=== PATIENT | male | born 1965 | race Caucasian/White ===

== ENCOUNTER 2024-10-23 17:55 | Emergency (ER) | payer OTHER, SELFPAY ==
[2024-10-23 18:00] VITALS: BP 117/75; PULSE 90; RESP 16; TEMP 36.4; O2SAT 99; BMI 25.7
[2024-10-23] MEDS: LIDOCAINE 1%-EPI 1:100,000 7 ML INFILTRATI (18:59)
--- NOTE | 2024-10-23 19:07 | CRLHL7_ITS ---
For Patients: As a result of the Cures Act, medical imaging exams and procedure reports are released immediately into your electronic medical record. You may view this report before your referring provider. If you have questions, please contact your health care provider. INDICATION: Fingertip caught in snowblower TECHNIQUE: Finger radiograph 3 views right 4th COMPARISON: None FINDINGS: Bone: No acute fractures or aggressive bone lesions are identified. Technologist annotation partially obscures the distal phalanx on the lateral view. Joint: The metacarpophalangeal and interphalangeal joints are normal in appearance. Soft tissue: Partial soft tissue amputation suspected in the distal digit. No radiopaque foreign bodies are seen. IMPRESSION: 1. No acute osseous injuries or abnormalities are noted. Dictated by: Haile Payan MD @ 10/23/2024 19:18:33 (Electronically Signed)
--- NOTE | 2024-10-23 19:43 | ED.WOUNDLAC ---
HPI - Wound/Laceration General Date Seen: 10/23/24 Chief Complaint: Laceration/Wound Stated Complaint: R ring/middle finger in mortgage loan originator Time Seen by Provider: 10/23/24 18:19 Source: patient Mode of arrival: ambulatory Limitations: no limitations History of Present Illness HPI narrative: Patient is a 59-year-old male who presents to emergency department after cutting his right distal 3rd and 4th fingers on a mortgage loan originator thought he was trying to clean. Is happened shortly prior to arrival. States he tried to clean the area extensively before he arrived. Last tetanus was 4 years ago he states. So far she could tell both fingernails were intact. No damage to the palmar aspect. No other concerns noted Related Data Home Medications ?Medication ?Instructions ?Recorded ?Confirmed No Known Home Medications 10/23/24 10/23/24 Allergies Allergy/AdvReac Type Severity Reaction Status Date / Time No Known Drug Allergies Allergy Verified 10/23/24 16:59 Review of Systems Narrative: Pertinent systems reviewed and were negative unless stated in HPI PFSH PFSH Social History Smoking Status: Never smoker Do you use any of these nicotine containing products: None How often do you have a drink containing alcohol: never How often do you have six or more drinks on one occasion: Never AUDIT-C Alcohol total score: 0 Non-prescribed substance use: denies use service: No Exam Narrative: Exam Narrative: Const: Well-nourished, Well-developed, in no distress Eyes: PERRL, no conjunctival injection, and symmetrical lids HENT: Atraumatic external nose and ears. Moist mucous membranes. PERRLA removed MSK:Extremities w/o deformity, Normal Active ROM Skin: Warm, Dry. Avulsed skin and partial nail avulsion noted to the right 4th finger. Avulsed scan is just to the dorsal aspect. Goes about snf down the nail. Nail bed is intact. On the right 3rd finger the nail has been pulled out of the eponychium. Neuro: Normal Muscle tone, No focal neurological deficits. Psych: Awake, Alert, & Oriented x3. Appropriate mood and affect. Const: Vital Signs, click to edit/add: Vital Signs - 24 hr 10/23/24 18:00 Temperature 97.5 F L Pulse Rate [Pulse Oximeter] 90 Respiratory Rate 16 Blood Pressure [Ri ght Upper Arm] 117/75 Pulse Oximetry 99 Oxygen Delivery Me thod Room Air Course Vital Signs Vital signs: Initial Vital Signs Temperature 97.5 F L 10/23/24 18:00 Temperature Source Temporal Artery Scan 10/23/24 18:00 Pulse Rate 90 10/23/24 18:00 Respiratory Rate 16 10/23/24 18:00 Blood Pressure 117/75 10/23/24 18:00 Blood Pressure Mean 89 10/23/24 18:00 Blood Pressure Position Sitting 10/23/24 18:00 Pulse Oximetry 99 10/23/24 18:00 Oxygen Delivery Method Room Air 10/23/24 18:00 Vital Signs Temperature 97.5 F L 10/23/24 18:00 Pulse Rate 90 10/23/24 18:00 Respiratory Rate 16 10/23/24 18:00 Blood Pressure 117/75 10/23/24 18:00 Pulse Oximetry 99 10/23/24 18:00 Oxygen Delivery Method Room Air 10/23/24 18:00 Temperature 97.5 F L 10/23/24 18:00 Pulse Rate 90 10/23/24 18:00 Respiratory Rate 16 10/23/24 18:00 Blood Pressure 117/75 10/23/24 18:00 Pulse Oximetry 99 10/23/24 18:00 Oxygen Delivery Method Room Air 10/23/24 18:00 Medications Administered Medications: Discontinued Medications Generic Name Dose Route Start Last Admin Trade Name Freq PRN Reason Stop Dose Admin Lidocaine/Epinephrine 7 ml 10/23/24 18:44 10/23/24 18:59 Lidocaine 1%-Epi 1:100,000 INFILTRATI 10/23/24 18:45 7 ml ONCE ONE Administration MDM - Wound/Laceration MDM Narrative Medical decision making narrative: Patient is a 59-year-old male presenting to emergency department after cutting his fingers on a mortgage loan originator. Did do digital nerve blocks to both fingers soaking adequate to the clean them and evaluate the injury. The 3rd finger nail was pulled all of the eponychium but was able to place it back in. Bleeding is under control. No stitches needed. Of the distal half of exposed nail on the 4th finger has been avulsed but the portal scope proximal aspect is still intact. There is avulsed scan all around but no sign of injury to bone. Will do an x-ray though to better evaluate. X-ray showed no abnormalities. Due to all much avulsed skin with I will start him on antibiotics. He is agreeable to this plan. Tetanus is up-to-date. Imaging Data Finger x-ray: Radiologist's impression: 1. No acute osseous injuries or abnormalities are noted. Dictated by: Haile Payan MD @ 10/23/2024 19:18:33 Discharge Plan Discharge Clinical Impression: Avulsion of skin, Avulsion of nail Patient Disposition: Home, Self-Care Condition: Stable Additional Instructions: Make sure to keep the nails and place so that new nail can form. Keep both covered until fully healed. Take Tylenol and ibuprofen for pain. Take the antibiotics as directed Prescriptions: No Action No Known Home Medications Follow Up/Referrals: Provider,Not a Local [Primary Care Provider] - Stand Alone Forms: Unomy Info Instructions
== END 2024-10-23 20:00 | disposition home or self-care (01) ==
PROVIDERS: Emergency Provider Student in an Organized Health Care Education/Training Program
DX: S61.302A Unspecified open wound of right middle finger with damage to nail, initial encounter (principal); S61.304A Unspecified open wound of right ring finger with damage to nail, initial encounter; W26.9XXA Contact with unspecified sharp object(s), initial encounter
CPT/HCPCS: 73140; 99283